=== PATIENT | female | born 1975 | race Caucasian/White ===

== ENCOUNTER 2021-06-25 09:10 | Inpatient (IN) ==
[2021-06-25] MEDS ORDERED: cefOXitin 2,000 MG in 0.9 % Sodium Chloride 20 ML IVP ONE (09:31)
[2021-06-25] MEDS ORDERED: *HR* Propofol 200 MG/20 ML VIAL IVP ONE (09:37)
[2021-06-25] MEDS ORDERED: *HR* FentaNYL (PF) 100 MCG/2 ML VIAL ONE (09:37)
[2021-06-25] MEDS ORDERED: *HR* Midazolam HCl 2 MG/2 ML VIAL ONE (09:37)
[2021-06-25] MEDS ORDERED: *HR* Succinylcholine 200 MG/10 ML VIAL IVP ONE (09:41)
[2021-06-25] MEDS ORDERED: Ondansetron 4 MG/2 ML VIAL ONE (09:41)
[2021-06-25] MEDS ORDERED: Lidocaine -MPF 2% 5 ML VIAL ONE (09:41)
[2021-06-25] MEDS ORDERED: *HR* Rocuronium Bromide 50 MG/5 ML VIAL ONE ×2 (09:41→11:17)
[2021-06-25] MEDS ORDERED: Ringers Solution, Lactated 1,000 ML IVC SCH (09:45)
[2021-06-25] MEDS ORDERED: Scopolamine Patch 1.5 MG PATCH.TD72 TD ONE (10:05)
[2021-06-25] MEDS ORDERED: *HR* OxyCODONE Immed Rel 5 MG TABLET PO PRN (10:06)
[2021-06-25] MEDS ORDERED: Ondansetron 4 MG/2 ML VIAL IVP PRN (10:06)
[2021-06-25] MEDS ORDERED: Acetaminophen IV 1,000 MG/100 ML BAG IVPB ONE (10:41)
[2021-06-25] MEDS ORDERED: Ketamine HCL *QUVA* 50mg (1mL) SYRINGE ONE (10:41)
[2021-06-25] MEDS ORDERED: CefOXitin 1,000 MG VIAL ONE (11:13)
[2021-06-25] MEDS ORDERED: *HR* Vasopressin 20 UNIT/ML VIAL ONE (11:29)
[2021-06-25] MEDS ORDERED: Ketorolac 30 MG/ML VIAL ONE (11:51)
[2021-06-25] MEDS ORDERED: Naloxone 0.4 MG/ML INJ IVP PRN (11:57)
[2021-06-25] MEDS: *HR* HYDROmorphone PF 0.5 MG/0.5 ML SYRINGE IVP PRN ×4 (12:20→12:42)
[2021-06-25] MEDS: CeFAZolin 2 GM/100 ML BAG IVPB SCH (16:07)
[2021-06-25] MEDS: *HR* HYDROcodone/Acet 5/325 mg TABLET PO PRN (19:21)
[2021-06-26] MEDS: *HR* HYDROcodone/Acet 5/325 mg TABLET PO PRN ×2 (00:10→06:27)
[2021-06-26] MEDS: CeFAZolin 2 GM/100 ML BAG IVPB SCH ×2 (00:13→07:37)
[2021-06-26 07:17] VITALS: BP 103/66; PULSE 90; TEMP 98.1; O2SAT 94
== END 2021-06-26 09:56 | disposition home or self-care (01) | DRG 742 ==
LOC: SAMDAY 09:10 → 1NENUOBS 13:13
PROVIDERS: ADMIT Obstetrics & Gynecology; ATTEND Obstetrics & Gynecology